=== PATIENT | female | born 1995 | race Caucasian/White ===

== ENCOUNTER 2016-08-24 14:49 | Emergency (ER) | payer OTHER ==
[2016-08-24 14:58] VITALS: BP 123/73
== END 2016-08-24 15:29 | disposition home or self-care (01) ==
LOC: ED 14:49
DX: H10.13 Acute atopic conjunctivitis, bilateral (principal)

== ENCOUNTER 2016-11-13 22:21 | Emergency (ER) | payer OTHER ==
[2016-11-14 00:57] LABS: BASOPHIL % 0.5 % (0-2); PLATELET COUNT 169 x10^3mcL (130-400); RED CELL DISTRIBUTION WIDTH 12.5 % (11.5-14.5)
[2016-11-14 02:44] VITALS: BP 118/76
== END 2016-11-14 02:44 | disposition home or self-care (01) ==
LOC: ED 22:21
PROVIDERS: Emergency Medicine
DX: N83.209 Unspecified ovarian cyst, unspecified side (principal); Z79.1 Long term (current) use of non-steroidal anti-inflammatories (NSAID); Z79.891 Long term (current) use of opiate analgesic
CPT/HCPCS: J1885

== ENCOUNTER 2016-11-24 09:32 | Inpatient (IN) | payer OTHER ==
[~2016-11-24] VITALS: Ht 175.3 cm; Wt 106.6 kg
[2016-11-24 13:19] LABS: BASOPHIL % 0.1 % (0-2); PLATELET COUNT 210 x10^3mcL (130-400); RED CELL DISTRIBUTION WIDTH 12.6 % (11.5-14.5)
[2016-11-24 13:31] LABS: CALCIUM 8.7 mg/dL (8.5-10.1); CARBON DIOXIDE 25.3 mmol/L (21-32); CHLORIDE SERUM 105 mmol/L (98-107); CREATININE SERUM 0.6 mg/dL (0.6-1.0); GFR1 > 60 mL/min; GLUCOSE SERUM 98 mg/dL (74-106); POTASSIUM SERUM 3.3 mmol/L (3.5-5.1); SODIUM SERUM 140 mmol/L (136-145)
[2016-11-24 13:37] LABS: ALBUMIN 3.7 g/dL (3.4-5.0); ALKALINE PHOSPHATASE 67 U/L (46-116); ALT/SGPT 27 U/L (14-59); AMYLASE 30 U/L (25-115); AST/SGOT 15 U/L (15-37); BILIRUBIN TOTAL 0.47 mg/dL (0.20-1.00); LIPASE 156 IU/L (73-393); TOTAL PROTEIN, SERUM 7.7 g/dL (6.4-8.2)
[2016-11-24 18:59] LABS: FREE T4 0.92 ng/dL (0.76-1.46); FREE THYROXINE INDEX 2.2 ug/dL (1.4-4.5); T4(THYROXINE) 7.7 ug/dL (4.7-13.3)
[2016-11-24 19:24] VITALS: BP 131/68
[2016-11-24 19:34] LABS: MAGNESIUM 2.2 mg/dL (1.8-2.4); PHOSPHOROUS 4.2 mg/dL (2.5-4.9)
[2016-11-25 06:06] VITALS: BP 112/68
[2016-11-25 06:36] LABS: BASOPHIL % 0.1 % (0-2); CALCIUM 8.3 mg/dL (8.5-10.1); CARBON DIOXIDE 27.4 mmol/L (21-32); CHLORIDE SERUM 106 mmol/L (98-107); CREATININE SERUM 0.7 mg/dL (0.6-1.0); GFR1 > 60 mL/min; GLUCOSE SERUM 93 mg/dL (74-106); PLATELET COUNT 169 x10^3mcL (130-400); POTASSIUM SERUM 3.8 mmol/L (3.5-5.1); RED CELL DISTRIBUTION WIDTH 12.4 % (11.5-14.5); SODIUM SERUM 139 mmol/L (136-145)
[2016-11-25 06:41] VITALS: BP 153/83
[2016-11-25 06:59] LABS: CHOLESTEROL/HDL RATIO 3.6
[2016-11-25 09:30] VITALS: BP 119/70
[2016-11-25 13:45] VITALS: BP 112/58
[2016-11-25 17:08] LABS: UA SPECIFIC GRAVITY 1.015 (1.005-1.035); microscopic required? YES; urine erythrocyte 3+ (NEGATIVE)
[2016-11-25 18:20] LABS: AMPHETAMINE QUAL UR NONE DETECTED (NEG <=1000)
[2016-11-25 18:24] VITALS: BP 118/64
[2016-11-25 22:42] VITALS: BP 117/81
[2016-11-26 05:35] VITALS: BP 122/56
[2016-11-26 06:46] LABS: BASOPHIL % 0.1 % (0-2); PLATELET COUNT 160 x10^3mcL (130-400); RED CELL DISTRIBUTION WIDTH 12.9 % (11.5-14.5)
[2016-11-26 07:01] LABS: CALCIUM 8.3 mg/dL (8.5-10.1); CARBON DIOXIDE 26.6 mmol/L (21-32); CHLORIDE SERUM 104 mmol/L (98-107); CREATININE SERUM 0.6 mg/dL (0.6-1.0); GFR1 > 60 mL/min; GLUCOSE SERUM 92 mg/dL (74-106); MAGNESIUM 2.1 mg/dL (1.8-2.4); PHOSPHOROUS 3.5 mg/dL (2.5-4.9); SODIUM SERUM 135 mmol/L (136-145)
[2016-11-26 09:41] VITALS: BP 117/59
[2016-11-26 13:31] VITALS: BP 94/65
[2016-11-26 17:11] VITALS: BP 125/69
[2016-11-26 21:42] VITALS: BP 125/75
[2016-11-27 06:23] LABS: BASOPHIL % 0.4 % (0-2); PLATELET COUNT 176 x10^3mcL (130-400); RED CELL DISTRIBUTION WIDTH 12.5 % (11.5-14.5)
[2016-11-27 06:31] LABS: CALCIUM 8.1 mg/dL (8.5-10.1); CARBON DIOXIDE 27.6 mmol/L (21-32); CHLORIDE SERUM 106 mmol/L (98-107); CREATININE SERUM 0.6 mg/dL (0.6-1.0); GFR1 > 60 mL/min; GLUCOSE SERUM 94 mg/dL (74-106); POTASSIUM SERUM 4.2 mmol/L (3.5-5.1); SODIUM SERUM 141 mmol/L (136-145)
[2016-11-27 06:52] VITALS: BP 101/51
[2016-11-27 09:06] VITALS: BP 118/62
[2016-11-27] MEDS ORDERED: MOT600 PO (11:25)
[2016-11-27] MEDS ORDERED: OSCD PO (11:25)
[2016-11-27] MEDS ORDERED: NOR10T PO (11:25)
[2016-11-27] MEDS ORDERED: BEN50 PO (11:26)
[2016-11-27 11:59] VITALS: BP 118/62
== END 2016-11-27 13:12 | disposition home or self-care (01) | DRG 760 ==
LOC: ED 09:32 → DU 17:33 → MU 11-27 08:56
PROVIDERS: Family Medicine; Specialist; ADMIT Family Medicine
DX: N83.291 Other ovarian cyst, right side (principal); N17.0 Acute kidney failure with tubular necrosis; E87.1 Hypo-osmolality and hyponatremia; D64.9 Anemia, unspecified; D72.829 Elevated white blood cell count, unspecified; E83.51 Hypocalcemia; F12.10 Cannabis abuse, uncomplicated; E87.6 Hypokalemia
CPT/HCPCS: 83880; 84439; J1885; J2270; J2405; J3010; J3480; J7030; Q0092; Q0163

== ENCOUNTER 2017-05-29 09:42 | Emergency (ER) | payer OTHER ==
[~2017-05-29] VITALS: Ht 165.1 cm; Wt 109.8 kg
[~2017-05-29 09:42] MED LIST: BEN50 PO; MOT600 PO; NOR10T PO; OSCD PO
[2017-05-29 09:56] VITALS: Ht 165.1 cm; Wt 109.8 kg
[2017-05-29 11:01] LABS: BASOPHIL % 0.3 % (0-2); PLATELET COUNT 227 x10^3mcL (130-400); RED CELL DISTRIBUTION WIDTH 12.7 % (11.5-14.5)
[2017-05-29 11:19] VITALS: BP 118/64
== END 2017-05-29 11:47 | disposition home or self-care (01) ==
LOC: ED 09:42
PROVIDERS: Emergency Medicine
DX: N39.0 Urinary tract infection, site not specified (principal)
CPT/HCPCS: 36415; J1885; Q0162